=== PATIENT | female | born 2000 | race African-American/Black ===

== ENCOUNTER 2023-01-13 10:24 | Emergency (ER) | payer MEDICAID, OTHER ==
[~2023-01-13] VITALS: Ht 160 cm; Wt 59.0 kg
[2023-01-13 10:30] VITALS: BP 119/79; PULSE 100; RESP 18; TEMP 98.7; O2SAT 100
[2023-01-13 11:54] LABS: CLARITY URINE CLEAR (CLEAR); COLOR URINE YELLOW (YELLOW); GLUCOSE URINE NEGATIVE (NEGATIVE); KETONES URINE NEGATIVE (NEGATIVE); LEUKOCYTE ESTERASE URINE NEGATIVE (NEGATIVE); NITRITE URINE NEGATIVE (NEGATIVE); OCCULT BLOOD URINE NEGATIVE (NEGATIVE); PH URINE 6.5 (4.5-8.0); PROTEIN URINE NEGATIVE (NEGATIVE); SPECIFIC GRAVITY URINE 1.015 (1.005-1.030); UROBILINOGEN URINE 0.2 E.U./dL (0.2-1.0)
[2023-01-13] MEDS ORDERED: METR70GE5 VG (12:39)
== END 2023-01-13 14:24 | disposition home or self-care (01) ==
LOC: ER 10:24
DX: N76.0 Acute vaginitis (principal)
CPT/HCPCS: 81003; 87210; 99284; Z7610